=== PATIENT | female | born 1940 | race Caucasian/White ===

== ENCOUNTER 2018-03-23 02:20 | Emergency (ER) | payer MEDICARE, BC ==
[~2018-03-23] VITALS: Ht 172.7 cm; Wt 61.2 kg
--- NOTE | 2018-03-23 02:35 | NUR ---
PT A/OX4, ABLE TO FOLLOW COMMANDS. PT C/O SKIN TEAR ON LLE FROM A DOG SCRATCH 4-5 DAYS AGO. AREA APPEARS SLIGHTLY RED W/ SLIGHT SWELLING. PT DENIES PAIN AND ANY DISCOMFORT. PT DENIES C/P, SOB, N/V/D, DIZZINESS, HEADACHE. Addendum: 03/23/18 at 0241 by SCOTTY NO DRAINAGE NOTED AT THE SITE.
--- NOTE | 2018-03-23 02:38 | NUR ---
MATTHEW MUKHERJEE AT BEDSIDE FOR MSE.
[2018-03-23] MEDS ORDERED: AMOXICILLIN-CLAVUL 875-125MG TABLET PO ONE (02:45)
[2018-03-23] MEDS ORDERED: AMOXICILLIN-CLAVUL 875-125MG TABLET ONE (02:47)
--- NOTE | 2018-03-23 02:53 | NUR ---
Patient discharged to home in stable conditon. Written and verbal after care instructions given. Patient verbalizes understanding of instructions. Pt. d/c w/ prescription per MD order, no acute distress,
[2018-03-23 02:55] VITALS: BP 144/87
== END 2018-03-23 02:56 | disposition home or self-care (01) ==
LOC: ER 02:27
DX: S80.812A Abrasion, left lower leg, initial encounter (principal); L08.9 Local infection of the skin and subcutaneous tissue, unspecified; E78.5 Hyperlipidemia, unspecified; W54.0XXA Bitten by dog, initial encounter; Y93.89 Activity, other specified; Y92.89 Other specified places as the place of occurrence of the external cause; Y99.8 Other external cause status
CPT/HCPCS: A4663